=== PATIENT | female | born 1985 | race Caucasian/White ===

== ENCOUNTER 2023-06-04 10:21 | Outpatient (CLI) | payer OTHER, SELFPAY ==
--- NOTE | 2023-06-04 10:15 | CRLHL7_ITS ---
For Patients: As a result of the 21st Century Cures Act, medical imaging exams and procedure reports are released immediately into your electronic medical record. You may view this report before your referring provider. If you have questions, please contact your health care provider. HISTORY: Degenerative joint disease. TECHNIQUE: Noncontrast MRI of the right ankle. COMPARISON: MRI from 01/10/2018. FINDINGS: Tendons: The posteromedial flexor tendons are intact. The anterior extensor tendons are intact. Mild distal Achilles tendinosis, unchanged. Postsurgical changes involving the peroneal tendons which appear to have been rebounded to the lateral calcaneus. - Ligaments: The anterior and posterior syndesmotic ligaments are intact. There is chronic thickening of the anterior talofibular ligament which appears unchanged and likely reflects sequelae of remote sprain. The calcaneofibular and posterior talofibular ligaments are intact. Deltoid ligament intact. The sinus tarsi fat is maintained. Lisfranc ligament intact. - Joint spaces: There is mature fusion across the talonavicular and calcaneocuboid articulations. Small focus of subchondral bone marrow edema underlying the lateral talar dome is new from prior examination and may relate to a small area of grade 4 cartilage fissuring or erosion. Small amount of ankle joint fluid is present. No intra-articular joint body. Subtalar joint spaces are maintained. There degenerative changes of the navicular-1st cuneiform articulation with focus of subchondral bone marrow edema within the dorsal proximal aspect of the 1st cuneiform bone on sagittal STIR image #20 of series 8. TMT articulations are maintained. - Bones and soft tissues: Proximal plantar fascia is intact. There is subcutaneous edema involving the ankle and foot. No acute fracture. IMPRESSION: 1. Mature fusion across the talonavicular and calcaneocuboid articulations. 2. Degenerative changes of the ankle joint space. 3. Limited degenerative changes of the dorsal aspect of the navicular-1st cuneiform articulation. 4. No change in mild Achilles tendinosis. 5. Subcutaneous edema without localized collection. 6. No fracture. Dictated by Alex Perez MD @ 06/07/2023 7:28:14 AM (Electronically Signed)
== END 2023-06-04 10:22 | disposition home or self-care (01) ==
PROVIDERS: PCP Family Medicine; Visit Provider Podiatrist
DX: M19.071 Primary osteoarthritis, right ankle and foot (principal)
CPT/HCPCS: 73721

== ENCOUNTER 2025-07-12 07:07 | Emergency (ER) | payer OTHER, SELFPAY ==
[2025-07-12 07:16] VITALS: BP 154/102; PULSE 98; RESP 18; TEMP 36.3; O2SAT 96; BMI 50.1
[2025-07-12] MEDS: LACTATED RINGERS 1000 ML 1,000 ML IV (08:15)
[2025-07-12] MEDS: ONDANSETRON 2 MG/ML inj 4 MG IVP (08:16)
--- OUTSIDE RECORDS SUMMARY | 2025-07-12 08:21 | XMS_ITS | Clinical Summary ---
[facility] Address [address], [place] [address] Care Team Providers Care Oracle Fusion Developer Name Role Phone Clinician, Not Found MD Primary Care Provider Un available Source Comments You are receiving this document as you are listed as the primary care provider,follow-up provider, or the patient has been referred to you for consultation.This is in compliance with the Medicare and[facility] EHR Incentive Program,which states Providers who transition their patient to another setting of careor provider of care or refers their patient to another provider of care shouldprovide summary care record for each transition of care or referral. [place] Allergies Active Allergy Reactions Criticality Noted Date Comments Prochlorperazine Itching,Other, see comments 02/17/2021 anxiety Morphine 09/27/2008 PN: LW Reaction: Nausea Medications DRUG NOT IN COMPUTER Take 1 each by mouth as needed. LW Comment:vicodin 5/325 mg 8 Active naratriptan (AKA AMERGE) 2.5 MG tablet Take by mouth as needed. LW Addl Instr:Take 1 tablet by mouth at the onset of a typical headache as needed. May repeat after 4 hours if headache still present. Maximum of 2 tablets/24 hours. Maximum 9 days/month. Indicated for: Migraine Headaches 9 3 8 Active unknown medication Indications: PN: 8 Active omeprazole (PRILOSEC) 20 MG capsule Take 20 mg by mouth daily. Take 1 hour before a meal. Active zolpidem (AMBIEN) 10 MG tablet Take 10 mg by mouth daily. Active traZODone (DESYREL) 150 MG tablet Take 150 mg by mouth daily at bedtime. Active multivitamin (THERAGRAN) tablet Take 1 Tablet by mouth daily. Active oxyCODONE-acet aminophen (PERCOCET) 5-325 MG tablet Take 1-2 Tablets by mouth every 4 hours as needed for Pain. Maximum acetaminophen dose is 4000 mg in 24 hours. 20 Tablet Active Active Problems Problem Noted Date Diagnosed Date Acute pain of left knee 02/12/2021 Overview (02/12/2021): Added automatically from request for surgery [id number] Social History Tobacco Use Types Packs/Day Years Used Date Smoking Tobacco: Never Comments Unknown Sex and Gender Information Value Date Recorded Sex Assigned at Not on file Legal Sex Female 12:43 AM CDT Gender Identity Not on file Sexual Orientation Not on file Last Filed Vital Signs Vital Sign Reading Time Taken Comments Blood Pressure 132/71 02/17/2021 7:00 PM CDT Pulse 81 02/17/2021 7:15 PM CDT Temperature 36.1 C (97 F) 02/17/2021 6:06 PM CDT Respiratory Rate 13 02/17/2021 6:15 PM CDT Oxygen Saturation 92% 02/17/2021 7:15 PM CDT Inhaled Oxygen Concentration - - Weight 139.1 kg (306 lb 11.2 oz) 2020 12:29 PM CDT Height 170.2 cm (5' 7) 02/03/2021 7:45 PM CDT Body Mass Index 48.04 02/03/2021 7:45 PM CDT Plan of Treatment Health Maintenance Due Date Last Done Comments Cervical Cancer Screening Due 1986 Hep C Screening (Preventive Services) 1986 HIV Screening (Preventive Services) 2002 Adult Preventive Visit 2004 HepB Vaccine (1) 2005 HPV Vaccine (1 - 3-dose SCDM series) 2013 COVID-19 Vaccine (3 - season) 2025 12/18/2020, 11/20/2020 Influenza Vaccine (#1) 2025 0, 07/18/2019, 08/14/2014, Additional history exists DTaP/Tdap/Td Vaccine (9 - Tdap) 04/20/2029 04/20/2019, 03/30/2017, 10/08/1998, Additional history exists Zoster/Shingles Vaccine (1 of 2) 2036 Hib Vaccine Completed 04/14/1988 IPV (Polio) Vaccine Completed 12/28/1991, 04/14/1988, 01/14/1987, Additional history exists HepA Vaccine Aged Out No longer eligi ble based on patient's age to complete this topic MCV4 Vaccine Aged Out No longer eligi ble based on patient's age to complete this topic Meningococcal B Vaccine Aged Out No l onger eligible based on patient's age to complete this topic Pneumococcal Vaccine Aged Out No long er eligible based on patient's age to complete this topic Insurance MEDICA CHOICE MED[employer] CHOICE [employer]F INSURED DENTAL Advance Directives * Full Code (Latest Code Status on File) Date Activated Date Inactivated Comments 02/17/2021 6:06 PM 02/17/2021 9:45 PM Care Teams Oracle Fusion Developer Relationship Specialty Start Date End Date Clinician, Not Found, [place] [address] PCP - General 02/17/21
--- OUTSIDE RECORDS SUMMARY | 2025-07-12 08:21 | XMS_ITS | Clinical Summary ---
Author Organization [facility] Address [address] [place] [address] Care Team Providers Care Wood Technologist Name Role Phone Merlene Mathews MD Primary Care Provider [phone] Nilson Jones MD Unavailable [phone] Patricia Fitzpatrick RN Unavailable [phone] Allergies Active Allergy Reactions Criticality Noted Date Comments Prochlorperazine Anxiety 01/22/2008 Creepy crawly skin Morphine Itching,Nausea And Vomiting 08/14/2005 Medications Omeprazole 20 mg tablet Take 20 mg by mouth once daily. Active zolpidem (AMBIEN) 10 mg tablet TK 1 T PO QHS PRN 9 Active traZODone (DESYREL) 50 mg tablet TK SS TO 1 T PO 30 MIN BEFORE BED WITH ZOLPIDEM 9 Active frovatriptan (FROVA) 2.5 mg tab 9 Active latanoprost (XALATAN) 0.005 % ophthalmic solution Place 1 Drop into both eyes at bedtime. 3 Active multivitamin-commercial title examiner als therapeutic (THERAGRAN-M) tablet Take 1 Tablet by mouth once daily. Active cholecalciferol 2,000 unit capsuleIndications :Vitamin D insufficiency Take 1 Capsule (2,000 units) by mouth once daily. 5 Active ferrous sulfate 325 mg delayed release tabletIndications: Iron deficiency anemia secondary to inadequate dietary iron intake Take 1 Tablet (325 mg) by mouth once daily. 5 Active Active Problems Problem Noted Date Diagnosed Date Chronic GERD 05/04/2025 HTN (hypertension) 05/04/2025 Pre-diabetes 05/04/2025 NAFLD (nonalcoholic fatty liver disease) 025 Family history of breast cancer 06/26/2019 Iron deficiency anemia 04/25/2019 Twin , twins dichorionic and diamniotic 11/04/2018 Overview (05/08/2019): 33 y.o. di/di twins. A+, neg ab's; HbsAg NR, RI, Early 1h GCT wnl. Allergies: Compazine & morphine. BMI 46.99 OB Hx: x1 (2011); early sab x2 U/s findings: Dichorionic, diamniotic twin gestation, EFW A: 505, B: 514 grams, percentile: A: 95, B: > 97. Placental location: A: Posterior, B: Posterior There is no evidence of placenta previa Growth US q 4-6 weeks. BPP at 32 weeks. On ASA Baseline Pre-E labs - nml 01/2019 HTN - Labetalol 300 mg BID, now on 600 mg PO BID. - Admission 04/28-04/30/19 for HTN monitoring, headache Med Hx, concerns: MHA, Chiari Malformation, Degenerative discs, HTN, Obesity (see Care Coordination Bariatric Plan of Care in the notes dated 04/25/19 by Spencer Cheek RN.) Screening: Flu & TdaP vaccines: Peds: [facility] and Dr. Tavarze Support: Luis Luna (spouse) Children: Daniel (7) Reflux esophagitis 02/08/2017 Overview (03/10/2017): Seen on EGD Pes planus 08/26/2015 Class 3 severe obesity with body mass index (BMI) of 50.0 to 59.9 in adult 12/22/2014 Overview (04/20/2019): Anesthesiology consult complete 04/20/2019 Unspecified arthropathy, ankle and foot 08/09/20 14 Ganglion 08/09/2014 Status post arthrodesis 02/06/2014 Severe dysplasia of cervix 06/09/2011 Overview (11/06/2012): LEEP done 06/21: needs annual Paps. SANJAY III (cervical intraepithelial neoplasia III) 06/09/2011 Overview (03/03/2023): 06/27/2009 Pap: LSIL 08/08/2009 [place]: Insufficient Sample 04/23/2011 Pap: LSIL 05/14/2011 [place]: SANJAY II-III 06/09/2011 LEEP: SANJAY II-III, Positive Margins 02/17/2012 Pap: NIL 11/01/2012 Pap: NIL 12/21/2013 Pap: NIL/HPV Negative 12/10/2015 Pap: NIL/HPV Negative 11/04/2018 Pap: NIL/HPV Negative Plan: Pap and HPV testing due 10/2021 FH: BRCA gene positive 06/08/2011 Overview (12/10/2015): Sister: BRCA POSITIVE [ diagnosed with breast cancer; age 35; 2010; bilateral mastectomy, oophorectomy; chemotherapy] Brother: BRCA POSITIVE Maternal and paternal grandmother with breast cancer. Pt to get tested for BRCA now. Status post arthrodesis 03/19/2009 Chiari malformation type I 04/07/2006 Overview (05/18/2012): Dr. Gregory Funes, [facility]. Degenerative disc disease Migraine headache Low grade squamous intraepit helial lesion (LGSIL) on cervical Pap smear Overview (12/17/2015): 06/2009; 04/2011 Resolved Problems Problem Noted Date Diagnosed Date Resolved Date delivery delivered 05/15/2019 02/03/2021 Sterilization consult 04/25/20192020 Overview (04/25/2019): Yessy dstate form 04/24/19 1700 headache in third trimester 04/25/2019 02/03/2021 Nausea/vomiting in 04/25/2019 02/03/2021 HTN in , chronic 04/20/2019 Overview (04/20/2019): Diagnosed 03/2017, not previously on any meds Tachycardia 04/20/2019 02/03/2021 Supervision of high risk pre gnancy in third trimester 04/20/2019 02/03/2021 Overview (04/25/2019): GBS negative @ [address] [facility] Supervision of high risk , antepartum 04/05/2019 02/03/2021 Overview (05/12/2019): MPP TESTING ONLY NEXT VISIT ALERTS: PLANS & FUTURE APPOINTMENTS: TESTING PLAN: Weekly testing (BPP with NST) - Testing: Weekly through 05/26/19 GROWTH PLAN: 04/14/19 Serial (every four weeks) evaluation of growth - Growth: Next 05/12/19 DELIVERY PLAN: C/B on 05/25/2019 - Scheduled delivery: - Preferred delivery location: [place] PRIMARY DIAGNOSIS: 33 y.o. Estimated Date of Delivery: 06/14/19 D/D twins BMI <50 HTN LAST GROWTH: 05/12/19 35w2d A =3101 gm, 89%, B = 3025 gm, 83% 04/14/19 (31w2d) A = 2258 gm, 97%, B = 2248 gm, 96% 03/13/19 (26w5d) A = 1301 gm, >97%, B = 1106 gm, 71% 02/02/19 (21w1d) A = 505 gm, 95%, B = 514 gm, >97% ECHO: Done 02/15/19 REFERRING PHYSICIAN/PHONE/LAST UPDATE: Dr. Luis Alberto Leggett, PRESS W[employer]ER [facility] Primary MD approves scheduling of recommended ultrasounds/testing: Not specified SPECIALISTS/CONSULTS: Include: Specialty MD Clinic Name Phone# [place] GENETICS: First trimester screen = low risk CARE COORDINATION: PERTINENT LABS: A Pos, 1 hr gct = 116 PERTINENT MEDS: Baby ASA, zofran, omeprazole, PNV 04/25/19 Labetalol started 200 mg orally BID PLAN OF CARE: Per SA on 04/14/19: RECOMMENDATIONS: -Return to primary provider for continued care. -Serial (every four weeks) evaluation of growth -Weekly testing (BPP with NST) starting at 32 weeks gestation -Follow-up appointments for growth and testing is scheduled with us. -Delivery at 38 weeks gestation unless indicated sooner by maternal or status Maternal morbid obesity, antepartum 02/02/2019 02/03/2021 Miscarriage 09/01/2018 11/04/2018 Normal in multigravida 08/19/2018 09/08/2018 Overview (08/19/2018): 32 y.o. Labs ordered 08/19. Allergies: Morphine and compazine. BMI 45.8 OB Hx: at term (2011); early mab x1 (2010) U/s findings: Med Hx, concerns: MHA without aura. Screening: Flu & TdaP vaccines: Peds: [facility] and Dr. Tavarez Support: Alex Luna (spouse) Children: Daniel (6) HTN (hypertension) 12/28/2017 1 Overview (12/28/2017): 03/2017: Advised to start HCTZ 25 mg. Ultimately able to lower BP with DASH diet and has successfully been maintained off antihypertensive agents since that time. Cellulitis 12/21/2014 12/21/2014 Wound, open, foot 12/21/2014 12/21/2014 Wound infection 12/21/2014 12/28/2017 Wound, open, foot 06/30/2013 12/28/2017 LGA (large for gestational age) fetus 06/08/2012 10/20/2012 Overview (06/08/2012): Normal early GCT Repeat GCT at 28 weeks May need US growth later in LGA (large for gestational age) fetus 05/18/2012 10/20/2012 Overview (05/18/2012): Early GCT and repeat if normal at 28-30 weeks; if size>dates then consider US to assess weight Supervision of normal first 03/23/2012 10/20/2012 History of cervical LEEP bio psy affecting care of mother, antepartum 03/23/2012 11/06/2012 Overview (03/23/2012): Cervical length US at 14-16 weeks. 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 011 Peroneal tendinitis 03/19/2009 11/06/19 13 Peroneal tendon rupture 03/19/200910/12 Pain in limb 02/13/2008 06/08/2011 Lumbago 02/13/2008 11/06/2012 First trimester screening Gestational hypertension, third trimester 04/29/2019 Chronic nonintractable headache 02/03/2021 Chronic hypertension affecting 02/03/2021 Encounters Date Type Department Care Team Description 07/11/2025 Travel 07/04/2025 10:00 AM CDT Office Visit [facility] [address] [place] [address] Staff, Udbw Bariatric Weight (Pre Op Class) 06/29/2025 Travel 05/24/2025 4:15 PM CDT Telemedicine [facility] [address] [facility] [address] [place] [address] Nilson Jones MD Telehealth; Weight (Final SWL for RNY) 05/24/2025 Travel 05/21/2025 Telephone [facility] [address] [facility] [address] [place] [address] Nilson Jones MD Appointment Request 05/09/2025 Orders Only [facility] [address] [facility] [address] [facility] [address] [place] [address] Nilson Jones MD <No scans attached> 05/03/2025 4:00 PM CDT Telemedicine [facility] Weight Management [facility] [address] [facility] [address] [place] [phone] Medical Nutrition Therapy (SWL telehealth) 05/03/2025 Travel 05/03/2025 Office Visit [facility] [address] [facility] [address] [place] [phone] Kaley Busby, Lavon, LP Psychological Testing (Report - Bariatric Surgery Psychological Evaluation/) from Last 3 Months Immunizations Immunization Administration Dates Next Due COVID-19 vaccine (Moderna 100mcg/0.5mL) PF, MDV 12/18/2020,11/20/2020 DTP 10/08/1998, 2,04/14/1988,04/03,01/14/1987,1986 Hepatitis B (Peds) 05/20/1999,11/12/1998, 998 Hib Conjugate, Unspecified 04/14/1988 Influenza, IIV3 (Age 6-35 mos) 09/14/2012 Influenza, IIV3 (Age >=3 years) 08/03/2013,09/14 Influenza, IIV4 08/06/2021, 0,07/18/2019,08/14 MMR 10/08/1998,12/10/1987 Meningococcal Vaccine 02/26/2005 Oral Polio Vaccine 12/28/1991, 8,01/14/1987,11/08 Rabies Vaccine 06/23/2005, 5,05/28/2005,05/25 Td (Age >=7 Years) 03/30/2017,10/08/1998 Tdap 04/20/2019,03/06/2007 Varicella Vaccine 06/20/1998,11/03/1996 Family History Medical History Relation Name Comments BRCA 1/2 Brother Santino Negative for nano th 1/2 Other Brother Santino deafness in L e ar 2'mishel to meningitis Cancer-pancreatic Father GI Disease Father GI bleed Heart Disease Father a fib Hypertension Father Cancer-prostate Maternal Grandfather Cancer-breast Maternal Grandmother Other Maternal Grandmother rupture d cerebral aneurysm Hypertension Mother Other Mother anxiety attacks Rheum arthritis Mother Diabetes Other Pt's father's c ousins: Type-I diabetes Heart attack Paternal Grandfather Cancer-breast Paternal Grandmother BRCA1 Positive Sister Essie Cancer-breast Sister Essie BRCA positive Good Health Son Daniel Anesthesia Problem No Family History Cancer-ovarian No Family History Relation Name Status Comments Brother Santino Alive Father Maternal Grandfather Alive Maternal Grandmother Mother Alive Other Paternal Grandfather Paternal Grandmother at 34 of breast cancer Sister Essie Alive Son Daniel Alive 2012 Social History Tobacco Use Types Packs/Day Years Used Date Smoking Tobacco: Never Smokeless Tobacco: Never Tobacco Cessation:Counseling Given: Yes Alcohol Use Standard Drinks/Week Comments Yes 1 (1 standard drink = 0.6 oz pur e alcohol) social PHQ-2 Answer Date Recorded PHQ-2 TOTAL SCORE 0 04/08/2025 Social Connections Answer Date Recorded Do you often feel lonely or isolated from those around you? 0 02/19/2025 Financial Resource Strain Answer Date R ecorded Difficulty of Paying Living Expenses 3 02/19/2025 Difficulty of Paying Living Expenses Not on file 02/19/2025 Food Insecurity Answer Date Recorded Do you worry your food will run out before you are able to buy more? 1 02/19/2025 Transportation Needs Answer Date Record ed Does lack of transportation keep you from medica l appointments? 1 02/19/2025 Does lack of transportation keep you from work, meetings or getting things that you need? 1 02/19/2025 Housing Stability Answer Date Recorded What is your housing situation today? 1 02/19/2025 Utilities Answer Date Recorded Do you have trouble paying f or utilities (for example, heat, electricity, water, phone)? 1 02/19/2025 Comments No Sex and Gender Information Value Date Recorded Sex Assigned at Not on file Legal Sex Female 6:26 AM HISTORIC PRESERVATIONIST Gender Identity Not on file Sexual Orientation Not on file Occupation Industry Job Start Date Job End Date [employer]ER Not on file Not on file Not on file Obstetrics History Para Term AB IAB SAB Ectopic Multiple Livin g Live Births 4 2 1 1 2 0 1 0 1 3 3 Date Outcome GA Total Labor Labor/2nd/3rd Weight Sex Type Anes PTL Harmony A1 A5 Name Clin 1 SAB 2011 Term 4.05 kg (8 lb 15 oz) M Vag-Sp ont Livin g Daniel mederos ov Delivery Location:[facility] Comments:3rd degree la c 2017 AB 9w0 d SPONTA NEOUS 2018 35w 5d 0h 04m 3.27 kg (7 lb 3.3 oz) F C-Sect ion Epidur al Livin g 8 9 BG YOUSIF A DOROT HY WALCZ AK Delivery Location:[facility] ([address]) 2018 35w 5d 0h 04m 2.9 kg (6 lb 6.3 oz) M C-Sect ion Epidur al Livin g 8 9 LANDY DODD B DOROT HY WALCZ [place] Delivery Location:[facility] ([address]) Last Filed Vital Signs Vital Sign Reading Time Taken Comments Blood Pressure 138/86 08/11/2023 7:30 PM CDT Pulse 102 08/11/2023 7:30 PM CDT Temperature 36.3 C (97.3 F) 08/11/2023 7:30 PM CDT Respiratory Rate 16 08/11/2023 7:30 PM CDT Oxygen Saturation 93% 08/11/2023 7:30 PM CDT Inhaled Oxygen Concentration - - Weight 147.4 kg (325 lb) 05/24/2025 3:05 PM CDT Height 170.2 cm (5' 7.01) 05/24/2025 3:05 PM CD T Body Mass Index 50.89 05/24/2025 3:05 PM CDT Plan of Treatment Upcoming Encounters Date Type Department Care Team (Late st Contact Info) Description 07/13/2025 7:00 AM CDT Office Visit [address] [phone] Merlene Mathews MD [address] [place] [address] 07/25/2025 1:40 PM CDT Hospital Encounter [facility] [address] [place] [address] Nilson Jones MD [address] [facility] [address] [place], [place] [phone] 07/25/2025 1:40 PM CDT - 07/25/2025 4:46 PM CDT Surgery [facility] [address] [place] [address] Nilson Jones MD [address] [facility] [address] [place], [place] [address] Robotic Karen-en-Y gastric bypass 07/27/2025 9:00 AM CDT Phone Office Visit [facility] Weight Management - [facility] [address] [address] Anna Conley, RN [address] [address] 07/31/2025 8:30 AM CDT Telemedicine [facility] [address] [facility] [address] [place], [place] [address] Samina Be PA [address] [facility] [address] [place] [address] 08/15/2025 8:00 AM HISTORIC PRESERVATIONIST Telemedicine [facility] Weight Management - [address] [place] [phone] [address] 08/30/2025 9:00 AM HISTORIC PRESERVATIONIST Phone Office Visit [facility] [address] [facility] 200 [place] [phone] Patricia Fitzpatrick RN [address] [facility] [address] [place] [id number] Scheduled Procedures Name Priority Associated Diagnoses Date/Ti me ROBOTIC ASSISTED GASTRIC BYPASS KAREN-EN-Y XI Tier 3: within 90 days Class 3 severe obesity with body mass index (BMI) of 50.0 to 59.9 in adult (HC) Gastroesophageal reflux disease with esophagitis, unspecified whether hemorrhage HTN (hypertension) Pre-diabetes NAFLD (nonalcoholic fatty liver disease) 07/25/2025 1:40 PM CDT Health Maintenance Due Date Last Done Comments Hepatitis C screening for age 18-79 2004 HPV series for age 9-45 (1 - 3-dose SCDM series) 2013 Pap test for age 21-65 11/04/2021 9, 11/04/2018, 12/10/2015, Additional history exists COVID-19 vaccine series (2024- season) 2025 12/18/2020, 11/20/2020 Influenza Vaccine (#1) 2025 , 07/29/2020, 07/18/2019, Additional history exists Depression screening for age 12+ 04/08/2026 04/08/2025, 04/08/2023, 06/26/2019, Additional history exists BMI (ht and wt on same day) for age 18+ 05/24/2026 05/24/2025, 05/03/2025, 04/04/2025, Additional history exists Tetanus booster 04/20/2029 04/20/2019, 03/12, 03/06/2007, Additional history exists RSV vaccine for adults or (1 - 1-dose 75+ series) 2061 Hepatitis B series for 19+ Completed 05/20, 11/12/1998, 10/08/1998 HIV for age 15-65 Completed 11/04/2018, 08/19/2018 Pneumococcal series for age 6-49 Aged Out No longer eligible based on patient's age to complete this topic Goals Goal Patient Goal Type Associated Problems Recent Progress Patient-Stated? Author Autogenera francisco Goal Care Plan Autogenerated Problem No Ruby [employer] Implanted Type Area Battery Assembler Device Identifier Shelf Expiration Date Model / Serial / Lot Ancr Quick G2 W/Orthocord - [id number] Implanted:Qty: 1 on 11/18/2006 at [facility] Left: Ankle [employer] [id number]# / / [id number] - [id number] Implanted:Qty: 1 on 01/06/[address] [facility] Right: Foot 11/25/2012 [id number] / / [id number] Paste Dbm 1cc Jrf Stimublast Cb - [id number] Implanted:Qty: 1 on 01/03/2013 by Anastasia Guzmán DPM at [facility] Right: Foot [employer] 08/25/2013 [id number]# / / [id number] Paste Dbm 3cc Jrf Stimublast Cb - [id number] Implanted:Qty: 1 on 04/11/2013 by Anastasia Guzmán DPM at [facility] [employer] 01/12/2014 [id number]# / ABS-2004-03 / [id number] - [id number] Implanted:Qty: 1 on 06/30/2013 by Anastasia Guzmán DPM at [facility] Right: Foot Integra [employer] Primo 04/29/2014 [id number] / / [id number] Description:flowable wound m atrix #fwd 301 Drsg Meshed Bilayer 4x5 - [id number] Implanted:Qty: 1 on 06/30/2013 by Anastasia Guzmán DPM at [facility] Right: Foot [employer] Primo 03/30/2014 [id number]# / / [id number] Mfwd 301 - [id number] Implanted:Qty: 1 on 10/23/2014 by Anastasia Guzmán DPM at [facility] Left: Foot [employer] Primo 09/09/2015 [id number]# / / [id number] Description:Integra Flowable Wound Matrix Allograft 2x2in Matrix Single Layer Meshed Bovine - [id number] Implanted:Qty: 1 on 10/23/2014 by Anastasia Guzmán DPM at [facility] Left: Foot [employer] Primo 06/10/2016 [id number]# / / [id number] Bone Matrix 1cc Biocartilage Paste Synth [id number] Implanted:Qty: 1 on 08/11/2023 by Barak Luna DPM at [facility] Right: Ankle [employer] 09/01/2027 [id number] / [id number] / Procedures Procedure Name Priority Date/Time Associated Diagnosis Comments ANTI HIV 1/2 Routine 11/04/2018 10:50 AM HISTORIC PRESERVATIONIST Dichorionic diamniotic twin in first trimester (HC) FUEL MANAGEMENT HANDLER THIN PREP PAP SCREEN IMAGED Routine 11/04/2018 10:34 AM HISTORIC PRESERVATIONIST Screening for malignant neoplasm of cervix from Last 3 Months or Most Recently Relevant to Health Maintenance Results * ANTI HIV 1/2 (11/04/2018 10:50 AM HISTORIC PRESERVATIONIST) Pathologist [facility] HIV-1/HIV-2 ANTIBODY Non-Reacti ve Non-Reacti ve 11/04/2018 6:40 PM HISTORIC PRESERVATIONIST [facility] Comment:HIV-1 p24 and HIV-1/ HIV-2 Ab not detected. Blood BLOOD SPECIMEN / Unknown Venipuncture / Unknown 11/04/2018 10:50 AM HISTORIC PRESERVATIONIST 11/04/2018 10:51 AM HISTORIC PRESERVATIONIST us Eileen Gloria NP SEND OUTS Final Re sult [facility] [address] [place] [address], [place] * FUEL MANAGEMENT HANDLER THIN PREP PAP SCREEN IMAGED (11/04/2018 10:34 AM HISTORIC PRESERVATIONIST) Case Report Gynecologic Cytology Report Case: [id number] Authorizing Provider: Eileen Gloria NP Collected: 11/04/2018 1034 Ordering Location: [facility] Received: 11/04/2018 1034 Clinic First Screen: Ryann Bill Rescreen: Koki Riggs Specimen: FUEL MANAGEMENT HANDLER ThinPrep Vial Screening, Cervical 11/16/2018 3:29 PM HISTORIC PRESERVATIONIST [facility] INTERPRETATION/ RESULT NEGATIVE FOR INTRAEPITHELIAL LESION OR MALIGNANCY (NIL) (none) 11/16/2018 3:29 PM HISTORIC PRESERVATIONIST [facility] at 1529 HISTORIC PRESERVATIONIST SPECIMEN ADEQUACY Satisfactory for evaluation No endocervical component seen in a patient 11/16/2018 3:29 PM HISTORIC PRESERVATIONIST [facility] HPV REQUEST HPV and PAP 11/16/2018 3:29 PM HISTORIC PRESERVATIONIST [facility] Date of LMP 11/16/2018 3:29 PM HISTORIC PRESERVATIONIST [facility] Last Pap Date 12/10/15 11/16/2018 3:29 PM HISTORIC PRESERVATIONIST [facility] Last Pap Result NIL 9 3:29 PM HISTORIC PRESERVATIONIST [facility] Abnormal Pap or [place] Bx in last 5 years Yes 11/16/2018 3:29 PM HISTORIC PRESERVATIONIST [facility] Menstrual Status 11/16/2018 3:29 PM HISTORIC PRESERVATIONIST [facility] [place] Bx Done Today No 11/16/2018 3:29 PM HISTORIC PRESERVATIONIST [facility] Additional Information None given 11/16/2018 3:29 PM HISTORIC PRESERVATIONIST [facility] Automated Review Successful 11/16/2018 3:29 PM HISTORIC PRESERVATIONIST [facility] Comment:Specimen processed s uccessfully by automated supervisor painting department device, ThinPrep Imaging System, [employer] ANCILLARY TESTING FUEL MANAGEMENT HANDLER HPV Ordered, Please see separate report 11/16/2018 3:29 PM HISTORIC PRESERVATIONIST [facility] Note The pap test is a screening technique, not a diagnostic procedure. It is used primarily to screen for squamous cancers and precursor lesions. Published studies have shown that it is subject to both false negative and false positive results. The pap test should not be used as the sole means to diagnose or exclude pre-malignant and malignant lesions. Cytology is screened and interpreted at [facility] - [address] [address] and [facility] - [address] [place] [address]; [place] [address] [address] [facility] - [address]; [place] [address] and [facility] [address]; [place] [address] 11/16/2018 3:29 PM HISTORIC PRESERVATIONIST [facility] Other (Cervical) Non-Blood / Unknown 11/04/2018 10:34 AM HISTORIC PRESERVATIONIST 11/04/2018 10:34 AM HISTORIC PRESERVATIONIST us Eileen Gloria NP PATHOLOGY/CYTOLOGY Final Result [facility] [address] [place] [address], from Last 3 Months or Most Recently Relevant to Health Maintenance Additional Health Concerns Active Problems Noted Date Diagnosed Date Autogenerated Problem 05/25/2025 Insurance [facility] Advance Directives * Full Code (Latest Code Status on File) Date Activated Date Inactivated Comments 08/11/2023 12:15 PM 08/11/2023 10:10 PM Question Answer Comments Code Status Discussion: Reviewed Preferences * Full Code Date Activated Date Inactivated Comments 05/15/2019 5:41 PM 05/18/2019 3:02 PM * Full Code Date Activated Date Inactivated Comments 04/28/2019 7:43 PM 04/30/2019 9:55 PM Question Answer Comments Code Status Discussion: Not Discussed * Full Code Date Activated Date Inactivated Comments 04/24/2019 8:40 PM 04/26/2019 4:05 PM Question Answer Comments Code Status Discussion: Not Discussed * Full Code Date Activated Date Inactivated Comments 04/20/2019 11:19 AM 04/20/2019 5:01 PM Care Teams Wood Technologist Relationship Specialty Start Date End Date Merlene Mathews MD [address] [place] [id number] PCP - General Family Practice 08/03/23 Nilson Jones MD [address] [id number] Consulting Physician Surgery - General 02/20/25 Patricia Fitzpatrick RN [address] [id number] Nurse Navigator Registered Nurse 02/20/25
--- OUTSIDE RECORDS SUMMARY | 2025-07-12 08:21 | XMS_ITS | Clinical Summary ---
Author Organization [facility] Address [address] [place] [id number] Care Team Providers Care Dental Mold Maker Name Role Phone [facility], [facility] Primary Care Provider Allergies Active Allergy Reactions Criticality Noted Date Comments Prochlorperazine Itching 10/08/2011 Morphine Sulfate Nausea and Vomiting,Itching Medications verapamil (CALAN-SR) 180 MG CR tablet Take 180 mg by mouth At Bedtime. Active Frovatriptan Succinate (FROVA PO) Take by mouth once as needed. Active VITAMINS PO Take 1 tablet by mouth daily. Active LANSOPRAZOLE PO Take 30 mg by mouth daily. Active oxyCODONE (ROXICODONE) 5 MG immediate release tabletIndicatio ns:Vaginal delivery Take 1-2 tablets by mouth every 3 hours as needed. 30 tablet 0 09/15/2012 Active ibuprofen (ADVIL,MOTRIN) 400-800 mg tabletIndicatio ns:Vaginal delivery Take 1-2 tablets by mouth every 6 hours as needed (cramping). 90 tablet 0 09/15/2012 Active senna-docusate (SENOKOT-S;WARREN COLACE) 8.6-50 MG per tabletIndicatio ns:Vaginal delivery Take 1-2 tablets by mouth 2 times daily. 60 tablet 1 09/15/2012 Active Misc. Devices (BREAST PUMP) MISCIndications :Vaginal delivery 1 each daily as needed. 1 each 0 09/15/2012 Active OMEPRAZOLE PO Take 40 mg by mouth 2 times daily (before meals) Active traMADol (ULTRAM) 50 MG tablet Take 1 tablet (50 mg) by mouth every 8 hours as needed for pain 12 tablet 12/09/2017 Active Active Problems Problem Noted Date Diagnosed Date Vaginal delivery 2012 Indication for care in labor or delivery 012 Ultrasound scan to evaluate placenta for abrupti on 08/20/2012 Pain in joint, ankle and foot 04/25/2007 Other postprocedural status(V45.89) 04/25/2007 Immunizations Immunization Administration Dates Next Due Influenza (IIV3) PF 09/14/2012 Family History Medical History Relation Comments Hypertension Maternal Grandfather Hypertension Maternal Grandmother Hypertension Paternal Grandfather Cancer Sister Relation Status Comments Maternal Grandfather Maternal Grandmother Paternal Grandfather Sister Social History Tobacco Use Types Packs/Day Years Used Date Smoking Tobacco: Never Alcohol Use Standard Drinks/Week Comments Yes 0 (1 standard drink = 0.6 oz pur e alcohol) Social none during pregnaany Adolescent Education Answer Date Record ed Getting School Help Needed Not on file 07/17 Comments No Sex and Gender Information Value Date Recorded Sex Assigned at Not on file Legal Sex Female 3:40 AM AWNING SPREADER Gender Identity Not on file Sexual Orientation Not on file Last Filed Vital Signs Vital Sign Reading Time Taken Comments Blood Pressure 150/99 08/23/2024 8:28 AM AWNING SPREADER Pulse 82 08/23/2024 8:28 AM AWNING SPREADER Temperature 37.2 C (99 F) 12/09/2017 11:42 AM AWNING SPREADER Respiratory Rate 16 08/23/2024 8:28 AM AWNING SPREADER Oxygen Saturation 98% 08/23/2024 8:28 AM AWNING SPREADER Inhaled Oxygen Concentration - - Weight 149.7 kg (330 lb) 12/09/2017 11:43 AM AWNING SPREADER Height 170.2 cm (5' 7) 12/09/2017 11:43 AM AWNING SPREADER Body Mass Index 51.69 12/09/2017 11:43 AM AWNING SPREADER Plan of Treatment Health Maintenance Due Date Last Done Comments ADVANCE CARE PLANNING 1986 ANNUAL REVIEW OF HM ORDERS 1986 HEPATITIS C SCREENING 2004 DIABETES SCREENING 12/09/2020 12/09/2017, 0 10/16/2012, 10/08/2011, Additional history exists PAP 11/04/2021 11/04/2018 YEARLY PREVENTIVE VISIT 04/08/2024 04/08/2023 PHQ-2 (once per calendar year) 2024 COVID-19 VACCINE (3 - 2024- season) 2025 12/18/2020, 11/20/2020 INFLUENZA VACCINE (#1) 2025 , 07/29/2020, 07/18/2019, Additional history exists DTAP/TDAP/TD VACCINE (11 - Td or Tdap) 04/20/2029 04/20/2019, 03/30/2017, 03/06/2007, Additional history exists ZOSTER VACCINE (1 of 2) 2036 HEPATITIS B VACCINE Completed 05/20/1999, 11/12/1998, 10/08/1998 MENINGITIS VACCINE Completed 02/26/2005 HIV SCREENING Completed 11/04/2018, 2012 HPV VACCINE (No Doses Required) Completed PNEUMOCOCCAL VACCINE: PEDIATRICS (0 to 5 YEARS) AND AT-RISK PATIENTS (6 to 49 YEARS) Aged Out No longer eligible based on patient's age to complete this topic Procedures Procedure Name Priority Date/Time Associated Diagnosis Comments COMPREHENSIVE METABOLIC PANEL STAT 12/09/2017 12:40 PM AWNING SPREADER HIV 1 AND 2 ANTIBODY (QUEST) Routine 2012 10:30 AM AWNING SPREADER from Last 3 Months or Most Recently Relevant to Health Maintenance Results * Comprehensive metabolic panel (12/09/2017 12:40 PM AWNING SPREADER) Sodium 138 133 - 144 mmol/L 12/09/2017 1:22 PM AWNING SPREADER [facility] Potassium 3.8 3.4 - 5.3 mmol/L 12/09/2017 1:22 PM [facility] Chloride 105 94 - 109 mmol/L 12/09/2017 1:22 PM [facility] Carbon Dioxide 25 20 - 32 mmol/L 12/09/2017 1:22 PM [facility] Anion Gap 8 3 - 14 mmol/L 12/09/2017 1:22 PM [facility] Glucose 94 70 - 99 mg/dL 12/09/2017 1:22 PM [facility] Urea Nitrogen 14 7 - 30 mg/dL 12/09/2017 1:22 PM [facility] Creatinine 0.69 0.52 - 1.04 mg/dL 12/09/2017 1:22 PM [facility] GFR Estimate >90 >60 mL/min/1.7 m2 12/09/2017 1:22 PM [facility] Comment:Non GFR Calc GFR Estimate If Black >90 >60 mL/min/1.7 m2 12/09/2017 1:22 PM [facility] Comment: GFR Calc Calcium 9.1 8.5 - 10.1 mg/dL 12/09/2017 1:22 PM [facility] Bilirubin Total 0.3 0.2 - 1.3 mg/dL 12/09/2017 1:22 PM [facility] Albumin 3.7 3.4 - 5.0 g/dL 12/09/2017 1:22 PM [facility] Protein Total 8.3 6.8 - 8.8 g/dL 12/09/2017 1:22 PM [facility] Alkaline Phosphatase 100 40 - 150 U/L 12/09/2017 1:22 PM [facility] ALT 27 0 - 50 U/L 12/09/2017 1:22 PM [facility] AST 17 0 - 45 U/L 12/09/2017 1:22 PM [facility] Blood specimen (specimen) 12/09/2017 12:40 PM AWNING SPREADER 12/09/2017 12:55 PM AWNING SPREADER us Kwabena Huerta APRN SUPERVISOR COMPOUNDING AND FINISHING LAB - BLOOD ORDERABLE S Final Result [facility] [address], [facility] [phone] * HIV 1 and 2 Antibody (2012 10:30 AM AWNING SPREADER) HIV 1&2 Antibody Negative NEG [facility] Blood specimen (specimen) 2012 10:30 AM AWNING SPREADER 2012 10:39 AM AWNING SPREADER Chano Leggett MD LAB - BLOOD ORDERABLES Final Result [facility] [address] [place] [address], [facility] from Last 3 Months or Most Recently Relevant to Health Maintenance [place] Care Teams Dental Mold Maker Relationship Specialty Start Date End Date [facility], [address] [id number] PCP - General 12/09/17
--- NOTE | 2025-07-12 08:55 | ED.HA ---
HPI - Headache General Date Seen: 07/12/25 Chief Complaint: Headache/Migraine Stated Complaint: Migraine Time Seen by Provider: 07/12/25 08:02 Source: patient Mode of arrival: ambulatory Limitations: no limitations History of Present Illness HPI Narrative: Patient is a 39-year-old female presenting to emergency department for a migraine. She states she has been doing migraines for decades. [facility] She took her home migraine abortive medication which did not help. She states typically it does help. She has taken 3 total doses. Symptoms started yesterday and have been gradually getting worse. She states this does feel like her previous migraines. Denies fevers, chills, vision changes, chest pain, shortness of breath, abdominal pain, diarrhea, constipation. Does states she has photophobia. States typically treatment she is given for her migraines is Zofran, Toradol, Dilaudid. States nothing else works. Related Data Home Medications ?Medication ?Instructions ?Recorded ?Confirmed trazodone 50 mg tablet 100 mg PO BID 12/27/23 07/12/25 zolpidem 10 mg tablet 10 mg PO QPM PRN 12/27/23 07/12/25 frovatriptan 2.5 mg tablet mg PO 07/12/25 latanoprost 0.005 % eye drops 1 drp ophthalmic (eye) QPM 07/12/25 07/12/25 Allergies Allergy/AdvReac Type Severity Reaction Status Date / Time morphine AdvReac Unknown Verified 07/12/25 07:20 prochlorperazine (From AdvReac Unknown Verified 07/12/25 07:20 Compazine) Review of Systems Status of ROS: Reports: 10 or more systems reviewed and unremarkable except as noted in History and below Exam Narrative: Exam Narrative: Const: Well-nourished, Well-developed, in mild to moderate distress Eyes: No conjunctival injection, and symmetrical lids HENT: Atraumatic external nose and ears. Moist mucous membranes. Neck: Symmetric, trachea midline, No thyromegaly. CVS: RRR, No murmurs or gallops. Peripheral pulses 2+ and equal in all extremities RESP: Unlabored respiratory effort. Clear to auscultation bilaterally. GI: Nontender/Nondistended, No rebound or guarding. MSK:Extremities w/o deformity, Normal Active ROM Skin: Warm, Dry. No rashes or lesions. Neuro: Normal Muscle tone, No focal neurological deficits. Psych: Awake, Alert, & Oriented x3. Appropriate mood and affect. Const: Vital Signs, click to edit/add: Vital Signs - 24 hr 07/12/25 07:16 Temperature 97.3 F L Pulse Rate [Right Pulse Oximeter] 98 Respiratory Rate 18 Blood Pressure [Ri ght Upper Arm] 154/102 H Pulse Oximetry 96 Oxygen Delivery Me thod Room Air Course Vital Signs Vital signs: Initial Vital Signs Temperature 97.3 F L 07/12/25 07:16 Temperature Source Temporal Artery Scan 07/12/25 07:16 Pulse Rate 98 07/12/25 07:16 Pulse Rhythm Regular 07/12/25 07:16 Pulse Strength 3+ Normal 07/12/25 07:16 Respiratory Rate 18 07/12/25 07:16 Blood Pressure 154/102 H 07/12/25 07:16 Blood Pressure Mean 119 H 07/12/25 07:16 Blood Pressure Position Sitting 07/12/25 07:16 Pulse Oximetry 96 07/12/25 07:16 Oxygen Delivery Method Room Air 07/12/25 07:16 Vital Signs Temperature 97.3 F L 07/12/25 07:16 Pulse Rate 98 07/12/25 07:16 Respiratory Rate 18 07/12/25 07:16 Blood Pressure 154/102 H 07/12/25 07:16 Pulse Oximetry 96 07/12/25 07:16 Oxygen Delivery Method Room Air 07/12/25 07:16 Temperature 97.3 F L 07/12/25 07:16 Pulse Rate 98 07/12/25 07:16 Respiratory Rate 18 07/12/25 07:16 Blood Pressure 154/102 H 07/12/25 07:16 Pulse Oximetry 96 07/12/25 07:16 Oxygen Delivery Method Room Air 07/12/25 07:16 Medications Administered Medications: Generic Name Dose Route Start Last Admin Trade Name Freq PRN Reason Stop Dose Admin Lactated Ringer's 1,000 mls @ 1,000 mls/hr 07/12/25 08:10 07/12/25 08:15 Lactated Ringers 1000 Ml IV 07/12/25 09:09 1,000 mls/hr .Q1H ONE Administration Discontinued Medications Generic Name Dose Route Start Last Admin Trade Name Freq PRN Reason Stop Dose Admin Ketorolac Tromethamine 15 mg 07/12/25 08:19 07/12/25 08:26 Ketorolac 15 Mg/Ml Inj IVP 07/12/25 08:20 15 mg ONCE ONE Administration Metoclopramide HCl 10 mg 07/12/25 08:10 07/12/25 08:23 Metoclopramide Hcl 5 Mg/Ml Inj IVP 07/12/25 08:11 Not Given ONCE ONE Ondansetron HCl 4 mg 07/12/25 08:10 07/12/25 08:16 Ondansetron 2 Mg/Ml Inj IVP 07/12/25 08:11 4 mg ONCE ONE Administration MDM - Headache MDM Narrative Medical decision making narrative: Patient is a 39-year-old female presenting to emergency department for headache. Differential includes migraine, cluster headache, tension headache, intracranial mass. Considering she has a known history of migraines and states this feels just like her previous migraines this is most likely another migraine and I do not believe imaging is necessary. Will start with a migraine cocktail which is including fluids, Toradol, Zofran. Patient did not want Reglan as she has history of Compazine making feeling very antsy even with the Benadryl. Patient states she is not feeling any better after the medication. I spoke to her again and she states she usually goes to [place] for her migraines but has not been seen in a while. States he can speak to her neurologist and she plan item number but again states similar medication the helps is dilaudid. I explained that narcotics are not recommended migraines as they cause rebound migraines. She states she will accept anything give her but again states that dilaudid is the only medication that helps. After speaking to the patient more was suicidal give her half a mg of Dilaudid and discharged her. She is agreeable to this plan Discharge Plan Discharge Clinical Impression: Migraine Qualifiers: Migraine type: unspecified Status migrainosus presence: without status migrainosus Intractability: not intractable Qualified Code(s): G43.909 - Migraine, unspecified, not intractable, without status migrainosus Patient Disposition: Home, Self-Care Condition: Stable Instructions: Migraine Headache (ED) Additional Instructions: Follow-up with your neurologist. Return to emergency department for new or worsening symptoms. Prescriptions: No Action trazodone 50 mg tablet 100 mg PO BID zolpidem 10 mg tablet 10 mg PO QPM PRN latanoprost 0.005 % drops 1 drp ophthalmic (eye) QPM frovatriptan 2.5 mg tablet PO Follow Up/Referrals: Merlene Mathews MD [Primary Care Provider, Obstetrics] Stand Alone Forms: [facility] Info Instructions
[2025-07-12 09:02] VITALS: PULSE 95; O2SAT 99
[2025-07-12 09:04] VITALS: BP 166/114; PULSE 91; O2SAT 96
[2025-07-12 09:05] VITALS: PULSE 84; O2SAT 98
[2025-07-12 09:15] VITALS: PULSE 73; O2SAT 95
[2025-07-12 09:16] VITALS: BP 159/104; PULSE 80; O2SAT 96
== END 2025-07-12 09:25 | disposition home or self-care (01) ==
PROVIDERS: Emergency Provider Student in an Organized Health Care Education/Training Program; PCP Family Medicine
DX: G43.909 Migraine, unspecified, not intractable, without status migrainosus (principal)
CPT/HCPCS: 96374; 96375; 99283; 99284; J1171; J1885; J2405; J7120

== ENCOUNTER 2025-09-28 10:07 | Day surgery (SDC) | payer OTHER, SELFPAY ==
[2025-09-28] VITALS (13 sets, daily range): BP systolic 109–139; BP diastolic 67–96; PULSE 70–109; RESP 12–20; TEMP 36.2–37; O2SAT 93–100; BMI 45.2
[2025-09-28] MEDS: LACTATED RINGERS 1000 ML 1,000 ML 100 ML IV (10:50)
[2025-09-28] MEDS: SODIUM CHLORIDE 0.9 % (FLUSH) 10 ML SYRINGE IVF (10:55)
--- NOTE | 2025-09-28 11:03 | P.ORPRC_ITS ---
Procedure Note Date of procedure: 09/28/25 Procedure: PREOPERATIVE DIAGNOSIS: 1. Right knee medial meniscus root tear 2. Right knee chondromalacia POSTOPERATIVE DIAGNOSIS: 1. Right knee medial meniscus root tear 2. Right knee chondromalacia PROCEDURE: 1. Right knee arthroscopic medial meniscus root repair SURGEON: Ton Scott M.D. SUPERVISOR CORRESPONDENCE SECTION: Yvonne Lee O.P.A surgical assistants were critical for this case to aid in patient positioning, knee manipulation, instrument exchange, and wound closure. ANESTHESIA: General LMA EBL: 0 mL TOURNIQUET: 65 minutes at 250 mmHg COMPLICATIONS: None evident IMPLANTS: Arthrex SutureLoc Implant INDICATIONS: Patient is a 40-year-old female with recent history of right knee pain. MRI was performed, which revealed a medial meniscus root tear. Recommendation was subsequently made for surgical intervention consisting medial meniscus root repair to reduce knee pain, improve knee function, and reduce risk and rate of arthritis progression. Prior to surgery, the risks and benefits of the procedure were discussed with patient, all questions were answered, and informed consent was obtained. FINDINGS: Examination under anesthesia revealed negative Kaiser's and posterior drawer. Knee was stable to varus and valgus stress. Arthroscopic examination revealed incomplete radial tear of the medial meniscus near its posterior root attachment. Lateral meniscus was intact. ACL and PCL were intact. Diffuse grade 3 chondromalacia involving the central patella and trochlear groove. Normal appearing cartilage in the medial and lateral compartments. DESCRIPTION OF PROCEDURE: Patient was seen preoperatively and operative site was marked. She was then brought to the operating room where general anesthesia was administered. Patient was then placed supine on the operating table and given 3 g IV Ancef preoperatively for prophylaxis. A tourniquet was placed on the operative thigh. The operative lower extremity was prepped and draped in the appropriate sterile fashion, and the operative leg was placed into the leg francis. A surgical time-out was performed confirming patient identity, surgical site, and procedure. The operative lower extremity was exsanguinated and tourniquet inflated to 250 mmHg. Anterolateral and anteromedial portal sites were injected with 0.25% bupivacaine with epinephrine. Anterolateral portal established with an 11 blade. Anteromedial portal was established after localization with spinal needle. A portion of the retropatellar fat pad was removed with the shaver to allow for adequate visualization. Diagnostic arthroscopy was performed with findings as noted above. Attention was then directed to the repair of the medial meniscus. A passport cannula was placed into the medial portal. An attempt was made to perform a [id number] repair, however there was not enough quality tissue near the root attachment site to hold suture. Therefore, decision was made to proceed with a root repair technique. Arthroscopic shaver was used to clear soft tissue medial to the PCL. Root attachment site was then debrided using the shaver and arthroscopic rasp. The drill guide was inserted and placed in the appropriate position in the center of the root attachment footprint. A small incision was made over the anterior medial proximal tibia to allow for the guide to sit on the cortex of the anterior medial proximal tibia. The 2.4 mm drill pin was drilled to create a transtibial tunnel. After confirming this tunnel was in a satisfactory position, a Lasso wire was used to pass a the SutureLoc implant into position. Once the SutureLoc was placed in the subchondral bone, it was tensioned and secured into position. The meniscal scorpion was then used to pass the 1st repair stitch through the meniscal root tissue. Repair stitch was then shuttled through the knotless mechanism and loosely tensioned. A 2nd repair stitch was then placed through the meniscal root tissue slightly anterior to the 1st repair stitch. It was then shuttled through the knotless mechanism in a similar fashion. Both repair stitches were then tensioned securing the meniscus root back to its footprint. The knee was then cycled several times and the repair stitches were re-tensioned. A probe was then introduced, and the meniscus was confirmed to be stable and firmly secured to its footprint. The remnant sutures from the implant were then cut at the anterior portion of the tibial tunnel. At this stage, surgical instruments and a passport cannula were removed, and excess fluid was drained from the joint. Portal sites were closed 3-0 Monocryl subcuticular stitches and Dermabond. Sterile dressings were applied and the patient was awoken from anesthesia and transferred to the PACU in stable condition. PLAN: 1. Ice and elevation for pain and swelling. 2. Acetaminophen and oxycodone as needed for pain control. 3. Aspirin 81 mg twice daily for 2 weeks for DVT prophylaxis. 4. Touchdown weight-bearing right lower extremity for 6 weeks. Use crutches for assistance with ambulation. 5. No knee brace was utilized due to patient's body habitus. 6. Knee range of motion and quad sets/straight leg raise regularly. 7. Physical therapy per the Complex Meniscus Repair Rehabilitation Protocol. 8. Follow up in orthopedic clinic in 1-2 weeks for a wound check.
--- NOTE | 2025-09-28 11:03 | W.PM.H&PU ---
History & Physical Update History & Physical Update H&P Reviewed and patient assessed: No changes noted
--- NOTE | 2025-09-28 15:08 | P.ANES_ITS ---
Anesthesia Charges Start Date/Time Anesthesia Start Date: 09/28/25 Anesthesia Start Time: 13:09 Stop Date/Time Anesthesia Stop Date: 09/28/25 Anesthesia Stop Time: 15:07 Coding CPT Codes CPT Codes: ANESTH KNEE JOINT SURGERY - 29316 ([id number]) P3 - PATIENT W/SEVERE SYS DISEASE, QK - CLINICAL NUTRITIONIST 2-4 CNCRNT ANES PROC, QX - CROP DUSTER SVC W/ MD MED DIRECTION
--- NOTE | 2025-09-28 15:08 | W.ANESCHARGE ---
Anesthesia Charges Start Date/Time Anesthesia Start Date: 09/28/25 Anesthesia Start Time: 13:09 Stop Date/Time Anesthesia Stop Date: 09/28/25 Anesthesia Stop Time: 15:07 Coding CPT Codes CPT Codes: ANESTH KNEE JOINT SURGERY - 26954 ([id number]) P3 - PATIENT W/SEVERE SYS DISEASE, QK - BOTTLE ASSEMBLER 2-4 CNCRNT ANES PROC, QX - WINDOW CLEANER SVC W/ MD MED DIRECTION
--- NOTE | 2025-09-28 15:09 | P.ANES_ITS ---
Anesthesia Charges Start Date/Time Anesthesia Start Date: 09/28/25 Anesthesia Start Time: 13:09 Stop Date/Time Anesthesia Stop Date: 09/28/25 Anesthesia Stop Time: 15:07 Coding CPT Codes CPT Codes: ANESTH KNEE JOINT SURGERY - 47461 ([id number]) P3 - PATIENT W/SEVERE SYS DISEASE, QK - DEPUTY COMMONWEALTH'S ATTORNEY 2-4 CNCRNT ANES PROC, QX - TEAM OTR TRUCK DRIVER SVC W/ MD MED DIRECTION
--- NOTE | 2025-09-28 15:09 | W.ANESCHARGE ---
Anesthesia Charges Start Date/Time Anesthesia Start Date: 09/28/25 Anesthesia Start Time: 13:09 Stop Date/Time Anesthesia Stop Date: 09/28/25 Anesthesia Stop Time: 15:07 Coding CPT Codes CPT Codes: ANESTH KNEE JOINT SURGERY - 24082 ([id number]) P3 - PATIENT W/SEVERE SYS DISEASE, QK - SENIOR NET ARCHITECT 2-4 CNCRNT ANES PROC, QX - SHUTTLE INSPECTOR SVC W/ MD MED DIRECTION
--- NOTE | 2025-09-28 15:10 | P.NB_ITS ---
Nerve Block Nerve Block Time Seen by Provider: 15:00 Date Seen: 09/28/25 Type of block requested by surgeon for post-operative analgesia: geniculars Side: left Time out performed: Yes Verification of patient name: Yes Verification of date of : Yes Site marking: site marked Name of person performing procedure: Ang Mccoy Continuous monitoring Was continuous monitoring of O2 sat, B/P, cytotechnologist, recorded every 15 minutes?: Yes Procedure Checklist: sterile prep, needles and gloves Medications given in 5ml increments after negative aspiration: Ropivicaine %: 0.5 mL: 12 Needle gauge: 25
--- NOTE | 2025-09-28 15:43 | SUR.PHASEI ---
patient met discharge criteria per anesthesia
[2025-09-28] MEDS: OxyCODONE/APAP 5-325 TABLET PO (15:59)
--- NOTE | 2025-09-28 16:18 | SUR.PHASEII ---
Patient tolerated water and mina crackers. Patient and sig other verbalized understanding of discharge instructions and readiness to be discharged. Patient requested privacy to dress with sig other.
--- NOTE | 2025-09-28 16:36 | SUR.PHASEII ---
Dr. Scott met with patient and sig other prior to discharge. Dr. Scott answered patient questions satisfactorily.
== END 2025-09-28 16:30 | disposition home or self-care (01) ==
LOC: OR 10:08
PROVIDERS: PCP Family Medicine; Visit Provider Orthopaedic Surgery
PROC: (CPT 29882; principal; 2025-09-28 12:30)
DX: S83.241A Other tear of medial meniscus, current injury, right knee, initial encounter (principal); M94.261 Chondromalacia, right knee; G89.18 Other acute postprocedural pain
CPT/HCPCS: 29882; 01400; 64454; A9270; C1713; J0330; J0690; J1100; J1171; J2405; J2704; J2795; J3010; J3490; J7120; L1833